=== PATIENT | male | born 1950 | race Caucasian/White ===

== ENCOUNTER 2018-10-05 09:42 | Inpatient (IN) | payer MEDICARE, OTHER | END 2018-10-08 13:11 | disposition short-term general hospital (02) | LOC: ER FS 09:42 → 4TH 14:02 → ICU 10-07 19:10 | DX: I50.31 Acute diastolic (congestive) heart failure (principal); J44.1 Chronic obstructive pulmonary disease with (acute) exacerbation; Z87.891 Personal history of nicotine dependence; E87.2 Acidosis; Z85.820 Personal history of malignant melanoma of skin ==

== ENCOUNTER → 2018-10-21 | Outpatient (CLI) | payer MEDICARE ==
[~2018-10-21] MED LIST: ALBU2.5V4 NEB; C,E,1CAP2 PO; CHOL10007 PO; FLUT1BLS3 IH; MULT-1029 PO; RT-ALBUINH INH
[2018-10-21 12:54] LABS: CREATININE SERUM 1.42 MG/DL (0.60-1.30); POTASSIUM 4.7 MMOL/L (3.6-5.0)
[2018-10-21 12:55] LABS: CALCIUM 8.7 MG/DL (8.5-10.1)
[2018-10-22 11:23] LABS: HEMATOCRIT 38 % (40-54); HEMOGLOBIN 12.1 G/DL (13.3-17.7); MEAN CORPUSCULAR HEMOGLOBIN 31 PG (25-34); MEAN CORPUSCULAR HGB CONC 32 G/DL (32-36); MEAN CORPUSCULAR VOLUME 97 FL (80-99); PLATELET COUNT 308 10^3/uL (130-400); RED CELL DISTRIBUTION WIDTH 14.6 % (10.0-14.5); WHITE BLOOD COUNT 7.8 10^3/uL (4.3-11.0)
[2018-10-22 11:24] LABS: BASOPHILS % (AUTO) 1 % (0-10); EOSINOPHILS # (AUTO) 0.1 10^3/uL (0.0-0.3); EOSINOPHILS % (AUTO) 2 % (0-10); LYMPHOCYTES # (AUTO) 0.8 X 10^3 (1.0-4.0); LYMPHOCYTES % (AUTO) 11 % (12-44); MEAN PLATELET VOLUME 10.7 FL (7.4-10.4); MONOCYTES # (AUTO) 0.9 X 10^3 (0.0-1.0); MONOCYTES % (AUTO) 12 % (0-12); NEUTROPHILS # (AUTO) 5.9 X 10^3 (1.8-7.8); NEUTROPHILS % (AUTO) 75 % (42-75)
== END ==
LOC: LAB FS 11:54
PROVIDERS: ATTEND Family Medicine
DX: I48.91 Unspecified atrial fibrillation (principal); I50.23 Acute on chronic systolic (congestive) heart failure
CPT/HCPCS: 36415; 80048

== ENCOUNTER → 2018-10-22 | Outpatient (CLI) | payer MEDICARE ==
--- NOTE | 2018-10-26 17:40 | Physician Query-Final Dx ---
Clinic Account Progress/Dx Physician Query: Please give diagnosis Date of Service Oct 22, 2018 at 11:06 KRIS HAWK Oct 26, 2018 17:40
== END ==
LOC: IHC 11:06
PROVIDERS: ATTEND Family Medicine
DX: I50.42 Chronic combined systolic (congestive) and diastolic (congestive) heart failure (principal); I25.10 Atherosclerotic heart disease of native coronary artery without angina pectoris

== ENCOUNTER → 2019-05-12 | Outpatient (CLI) | payer MEDICARE | LOC: CARD 09:19 | PROVIDERS: ATTEND Internal Medicine Interventional Cardiology | DX: I48.0 Paroxysmal atrial fibrillation (principal); I35.1 Nonrheumatic aortic (valve) insufficiency; J44.9 Chronic obstructive pulmonary disease, unspecified; I50.42 Chronic combined systolic (congestive) and diastolic (congestive) heart failure; I25.10 Atherosclerotic heart disease of native coronary artery without angina pectoris | CPT/HCPCS: 93306 ==

== ENCOUNTER 2019-11-07 08:44 | Emergency (ER) | payer MEDICARE ==
[~2019-11-07] VITALS: Ht 183 cm; Wt 79.4 kg
--- NOTE | 2019-11-07 08:47 | ED General ---
General Stated Complaint: CANT URINATE; THINKS HE HAS A KIDNEY STONE Source of Information: Patient History of Present Illness Date Seen by Provider: November 07, 2019 Time Seen by Provider: 08:47 Initial Comments Patient is a 69-year-old male with past medical history significant for kidney stones who comes to the ER today complaining that he had some pain earlier in the week that he thought was typical for kidney stone pain. It was over the left flank area and it did resolve. Although he has been pain-free for several days, he states he has been unable to urinate over the last 24 hours. He has had scant amounts of urine but has the persistent urge to void with inability to do so. No severe pain. No fever. Patient states he has had this problem previously sec ondary to large kidney stones. His review of systems is otherwise negative. No recent illness or viral symptoms. Denies hematuria. Allergies and Home Medications Allergies Coded Allergies: No Known Drug Allergies (Unverified , 10/05/18) Home Medications Albuterol Sulfate 2.5 Mg/3 Ml Vial.neb, 2.5 MG NEB Q4H PRN for SHORTNESS OF BREATH, (Reported) Albuterol Sulfate 1 Puff Puff, 2 PUFF INH Q4H PRN for SHORTNESS OF BREATH, (Reported) C,E,Zinc,Copper 24/Om3/Lut/Mustapha 1 Each Capsule, 1 CAP PO 1800, (Reported) Cholecalciferol (Vitamin D3) 1,000 Unit Capsule, 1,000 UNIT PO 1800, (Reported) Fluticasone/Umeclidin/Vilanter 1 Each Blst.w.dev, 1 PUFF IH HS, (Reported) Multivit-Min/FA/Lycopene/Lut 1 Each Tablet, 1 TAB PO 1800, (Reported) Patient Home Medication List Home Medication List Reviewed: Yes Review of Systems Review of Systems Constitutional: no symptoms reported EENTM: no symptoms reported Respiratory: no symptoms reported Cardiovascular: no symptoms reported Gastrointestinal: no symptoms reported, see HPI Genitourinary: no symptoms reported, see HPI Musculoskeletal: no symptoms reported Skin: no symptoms reported All Other Systems Reviewed Negative Unless Noted: Yes Past Kmneuxr-Czmjdn-Mnpzmc Hx Patient Social History Alcohol Beverage of Choice: Beer Type Used: Cigarettes Former Smoker, Quit: Oct 04, 2016 2nd Hand Smoke Exposure: No Recent Hopitalizations: No Seasonal Allergies Seasonal Allergies: No Past Medical History 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, Ear Surgery, Orthopedic Respiratory: Yes Pneumonia, COPD Currently Using CPAP: No Currently Using BIPAP: No Cardiac: No Neurological: No Genitourinary: No Kidney Stones Gastrointestinal: No Musculoskeletal: No Endocrine: No HEENT: No Cancer: Yes Skin Did You Recieve Any Treatments: Yes What Type of Treatment Did You: Surgical Intervention Psychosocial: No Integumentary: Yes (BASAL CELL SKIN CANCER) Blood Disorders: No Physical Exam Vital Signs Vital Signs - First Documented 11/07/19 08:50 Temp 36.5 Pulse 134 Resp 18 B/P (MAP) 123/97 (106) Pulse Ox 97 Capillary Refill : Height, Weight, BMI Height: 6'0.00" Weight: 171lbs. 5.0oz. [id number]; 23.7 BMI Method:Stated General Appearance: No Apparent Distress, WD/WN HEENT: PERRL/EOMI Neck: Full Range of Motion Respiratory: Lungs Clear, Normal Breath Sounds Cardiovascular: Tachycardia Gastrointestinal: Normal Bowel Sounds, Non Tender, Soft Neurologic/Psychiatric: Alert, Oriented x3 Skin: Normal Color, Warm/Dry Progress/Results/Core Measures Suspected Sepsis SIRS Temperature: Pulse: Respiratory Rate: Laboratory Tests 11/07/19 09:15: White Blood Count 3.0L Blood Pressure / Mean: Laboratory Tests 11/07/19 09:15: Creatinine 1.12, Platelet Count 286 Results/Orders Lab Results Laboratory Tests Test 11/07/19 09:15 Range/Units White Blood Count 3.0 L 4.3-11.0 10^3/uL Red Blood Count 4.49 4.35-5.85 10^6/uL Hemoglobin 13.9 13.3-17.7 G/DL Hematocrit 42 40-54 % Mean Corpuscular Volume 93 80-99 FL Mean Corpuscular Hemoglobin 31 25-34 PG Mean Corpuscular Hemoglobin Concent 33 32-36 G/DL Red Cell Distribution Width 12.9 10.0-14.5 % Platelet Count 286 130-400 10^3/uL Mean Platelet Volume 10.1 7.4-10.4 FL Neutrophils (%) (Auto) 51 42-75 % Lymphocytes (%) (Auto) 31 12-44 % Monocytes (%) (Auto) 13 H 0-12 % Eosinophils (%) (Auto) 4 0-10 % Basophils (%) (Auto) 1 0-10 % Neutrophils # (Auto) 1.6 L 1.8-7.8 X 10^3 Lymphocytes # (Auto) 0.9 L 1.0-4.0 X 10^3 Monocytes # (Auto) 0.4 0.0-1.0 X 10^3 Eosinophils # (Auto) 0.1 0.0-0.3 10^3/uL Basophils # (Auto) 0.0 0.0-0.1 10^3/uL Neutrophils % (Manual) 51 % Lymphocytes % (Manual) 20 % Monocytes % (Manual) 8 % Eosinophils % (Manual) 4 % Basophils % (Manual) 0 % Band Neutrophils 2 % Atypical Lymphocytes 15 % Blood Morphology Comment NORMAL Sodium Level 138 135-145 MMOL/L Potassium Level 4.7 3.6-5.0 MMOL/L Chloride Level 101 98-107 MMOL/L Carbon Dioxide Level 24 21-32 MMOL/L Anion Gap 13 5-14 MMOL/L Blood Urea Nitrogen 21 H 7-18 MG/DL Creatinine 1.12 0.60-1.30 MG/DL Estimat Glomerular Filtration Rate > 60 BUN/Creatinine Ratio 19 Glucose Level 109 H 70-105 MG/DL Calcium Level 9.0 8.5-10.1 MG/DL Troponin I < 0.30 <0.30 NG/ML My Orders Orders - JACINTO ROBERTS DO Ct Abdomen/Pelvis Wo (11/07/19 08:50) Urinalysis (11/07/19 08:51) Basic Metabolic Panel (11/07/19 08:51) Ed Iv/Invasive Line Start (11/07/19 09:03) Cbc With Automated Diff (11/07/19 09:04) Troponin I Fs (11/07/19 09:04) Ekg Tracing (11/07/19 09:04) Ns Iv 1000 Ml (Sodium Chloride 0.9%) (11/07/19 09:15) Manual Differential (11/07/19 09:15) Coronavirus Sars-Cov-2 So 2019 (11/07/19 10:14) Vital Signs/I&O 11/07/19 08:50 Temp 36.5 Pulse 134 Resp 18 B/P (MAP) 123/97 (106) Pulse Ox 97 Capillary Refill : Progress Note : Time: 09:20 Progress Note Patient is seen and examined. Overall, his examination is unremarkable but he is noted to have significant tachycardia. Patient states he does have history of atrial fibrillation. He denies chest pain or shortness of breath. Will do urinalysis and CT scan and check basic labs. Currently in no distress. 10:20: All results are reviewed and discussed with the patient and all questions are answered. He has received Paul catheter now with 500 mL of clear urine initially out and continues to drain without difficulty. Heart rate is down to 88 and normal sinus rhythm. Labs are reviewed and they're is normal white blood cell count and kidney function. I spoke to the urologist, Dr. Hough, about this patient. Patient will follow up with urology tomorrow at 1:00 in preparation for cystoscopy and stone removal. Given upcoming procedure, it was requested that patient received testing for COVID which is ordered prior to discharge from the ER. He is discharged home with a leg bag. He is agreeable to this plan of care. ECG Initial ECG Impression Date: November 07, 2019 Initial ECG Impression Time: 09:00 Initial ECG Rate: 147 Departure Impression Primary Impression: Urinary obstruction Disposition: 01 HOME, SELF-CARE Condition: Improved Departure-Patient Inst. Referrals: PADMA IBANEZ MD (PCP/Family) Primary Care Physician JACINTO ROBERTS DO November 07, 2019 08:47
--- OUTSIDE RECORDS SUMMARY | 2019-11-07 08:50 | XMS REPORT | Continuity of Care Document ---
Author Organization Unknown Address Unknown Phone Unavailable Allergies Active Description Code Type Severity Reaction Onset Reported/Identified Relationship to Patient Clinical Status Yes No Known Drug Allergies [id number] Drug Allergy Unknown N/A 10/05/2018 Medications There is no data. Problems Date Dx Coded Attending Type Code Diagnosis Diagnosed By 10/07/2018 KEON ROBLEDO MD Ot E87 .2 ACIDOSIS 10/07/2018 KEON ROBLEDO MD Ot I50.31 ACUTE DIASTOLIC (CONGESTIVE) HEART FAILU 10/07/2018 KEON ROBLEDO MD, Ot J44 .1 CHRONIC OBSTRUCTIVE PULMONARY DISEASE W 10/07/2018 KEON ROBLEDO MD Ot Z85.820 PERSONAL HISTORY OF MALIGNANT MELANOMA O 10/07/2018 KEON ROBLEDO MD Ot Z87.891 PERSONAL HISTORY OF NICOTINE DEPENDENCE 10/07/2018 KEON ROBLEDO MD Ot E87 .2 ACIDOSIS 10/07/2018 KEON ROBLEDO MD Ot I50.31 ACUTE DIASTOLIC (CONGESTIVE) HEART FAILU 10/07/2018 KEON ROBLEDO MD Ot J44 .1 CHRONIC OBSTRUCTIVE PULMONARY DISEASE W 10/07/2018 KEON ROBLEDO MD Ot Z85.820 PERSONAL HISTORY OF MALIGNANT MELANOMA O 10/07/2018 KEON ROBLEDO MD Ot Z87.891 PERSONAL HISTORY OF NICOTINE DEPENDENCE 10/07/2018 KEON ROBLEDO MD Ot E87 .2 ACIDOSIS 10/07/2018 KEON ROBLEDO MD Ot I50.31 ACUTE DIASTOLIC (CONGESTIVE) HEART FAILU 10/07/2018 KEON ROBLEDO MD Ot J44 .1 CHRONIC OBSTRUCTIVE PULMONARY DISEASE W 10/07/2018 KEON ROBLDEO MD Ot Z85.820 PERSONAL HISTORY OF MALIGNANT MELANOMA O 10/07/2018 KEON ROBLEDO MD Ot Z87.891 PERSONAL HISTORY OF NICOTINE DEPENDENCE 10/07/2018 KEON ROBLEDO MD Ot E87 .2 ACIDOSIS 10/07/2018 KEON ROBLEDO MD Ot I50.31 ACUTE DIASTOLIC (CONGESTIVE) HEART FAILU 10/07/2018 KEON ROBLEDO MD, Ot J44 .1 CHRONIC OBSTRUCTIVE PULMONARY DISEASE W 10/07/2018 KEON ROBLEDO MD Ot Z85.820 PERSONAL HISTORY OF MALIGNANT MELANOMA O 10/07/2018 KEON ROBLEDO MD Ot Z87.891 PERSONAL HISTORY OF NICOTINE DEPENDENCE 10/07/2018 KEON ROBLEDO MD Ot E87 .2 ACIDOSIS 10/07/2018 KEON ROBLEDO MD Ot I50.31 ACUTE DIASTOLIC (CONGESTIVE) HEART FAILU 10/07/2018 KEON ROBLEDO MD, Ot J44 .1 CHRONIC OBSTRUCTIVE PULMONARY DISEASE W 10/07/2018 KEON ROBLEDO MD Ot Z85.820 PERSONAL HISTORY OF MALIGNANT MELANOMA O 10/07/2018 KEON ROBLEDO MD Ot Z87.891 PERSONAL HISTORY OF NICOTINE DEPENDENCE 10/08/2018 KEON RBOLEDO MD Ot E87 .2 ACIDOSIS 10/08/2018 KEON ROBLEDO MD Ot I50.31 ACUTE DIASTOLIC (CONGESTIVE) HEART FAILU 10/08/2018 KEON ROBLEDO MD, Ot J44 .1 CHRONIC OBSTRUCTIVE PULMONARY DISEASE W 10/08/2018 KEON ROBLEDO MD Ot Z85.820 PERSONAL HISTORY OF MALIGNANT MELANOMA O 10/08/2018 KEON ROBLEDO MD Ot Z87.891 PERSONAL HISTORY OF NICOTINE DEPENDENCE 10/08/2018 KEON ROBLEDO MD Ot E87 .2 ACIDOSIS 10/08/2018 KEON ROBLEDO MD Ot I21 .4 NON-ST ELEVATION (NSTEMI) MYOCARDIAL INF 10/08/2018 KEON ROBLEDO MD Ot I25.10 ATHSCL HEART DISEASE OF [place] CORONARY 10/08/2018 KEON ROBLEDO MD Ot I35 .0 NONRHEUMATIC AORTIC (VALVE) STENOSIS 10/08/2018 KEON ROBLEDO MD Ot I42 .9 CARDIOMYOPATHY, UNSPECIFIED 10/08/2018 KEON ROBLEDO MD Ot I48.91 UNSPECIFIED ATRIAL FIBRILLATION 10/08/2018 KEON ROBLEDO MD Ot I50.21 ACUTE SYSTOLIC (CONGESTIVE) HEART FAILUR 10/08/2018 KEON ROBLEDO MD Ot I50.31 ACUTE DIASTOLIC (CONGESTIVE) HEART FAILU 10/08/2018 KEON ROBLEDO MD Ot I95 .9 HYPOTENSION, UNSPECIFIED 10/08/2018 KEON ROBLEDO MD Ot J44 .1 CHRONIC OBSTRUCTIVE PULMONARY DISEASE W 10/08/2018 KEON ROBLEDO MD Ot J96.00 ACUTE RESPIRATORY FAILURE, UNSP W HYPOXI 10/08/2018 KEON ROBLEDO MD Ot Z85.820 PERSONAL HISTORY OF MALIGNANT MELANOMA O 10/08/2018 KEON ROBLEDO MD Ot Z87.891 PERSONAL HISTORY OF NICOTINE DEPENDENCE 10/22/2018 PADMA IBANEZ MD Ot I48.91 UNSPECIFIED ATRIAL FIBRILLATION 10/22/2018 PADMA IBANEZ MD Ot I50.23 ACUTE ON CHRONIC SYSTOLIC (CONGESTIVE) H 11/06/2018 PADMA IBANEZ MD Ot I25.10 ATHSCL HEART DISEASE OF [place] CORONARY 11/06/2018 PADMA IBANEZ MD Ot 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 11/10/2018 PADMA IBANEZ MD Ot I48.91 UNSPECIFIED ATRIAL FIBRILLATION 11/10/2018 PADMA IBANEZ MD Ot I50.23 ACUTE ON CHRONIC SYSTOLIC (CONGESTIVE) H 03/15/2019 PADMA IBANEZ MD Ot I25.10 ATHSCL HEART DISEASE OF [place] CORONARY 03/15/2019 PADMA IBANEZ MD Ot 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 05/11/2019 PADMA IBANEZ MD Ot I48.91 UNSPECIFIED ATRIAL FIBRILLATION 05/11/2019 PADMA IBANEZ MD Ot I50.23 ACUTE ON CHRONIC SYSTOLIC (CONGESTIVE) H 05/11/2019 PADMA IBANEZ MD Ot I25.10 ATHSCL HEART DISEASE OF [place] CORONARY 05/11/2019 PADMA IBANEZ MD Ot 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 06/01/2019 Charlie FRANCO MD Ot I25.10 ATHSCL HEART DISEASE OF [place] CORONARY 06/01/2019 Charlie FRANCO MD Ot I35 .1 NONRHEUMATIC AORTIC (VALVE) INSUFFICIENC 06/01/2019 Charlie FRANCO MD, Ot I48 .0 PAROXYSMAL ATRIAL FIBRILLATION 06/01/2019 Charlie FRANCO MD, Ot 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 06/01/2019 Charlie FRANCO MD, Ot J44 .9 CHRONIC OBSTRUCTIVE PULMONARY DISEASE, U 07/02/2019 Charlie FRANCO MD Ot I25.10 ATHSCL HEART DISEASE OF [place] CORONARY 07/02/2019 Charlie FRANCO MD, Ot I35 .1 NONRHEUMATIC AORTIC (VALVE) INSUFFICIENC 07/02/2019 Charlie FRANCO MD, Ot I48 .0 PAROXYSMAL ATRIAL FIBRILLATION 07/02/2019 Charlie FRANCO MD, Ot 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 07/02/2019 Charlie FRANCO MD, Ot J44 .9 CHRONIC OBSTRUCTIVE PULMONARY DISEASE, U 07/08/2019 Charlie FRANCO MD, Ot I25.10 ATHSCL HEART DISEASE OF [place] CORONARY 07/08/2019 Charlie FRANCO MD, Ot I35 .1 NONRHEUMATIC AORTIC (VALVE) INSUFFICIENC 07/08/2019 Cahrlie FRANCO MD, Ot I48 .0 PAROXYSMAL ATRIAL FIBRILLATION 07/08/2019 Charlie FRANCO MD Ot 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 07/08/2019 Charlie FRANCO MD, Ot J44 .9 CHRONIC OBSTRUCTIVE PULMONARY DISEASE, U Procedures Code Description Performed By Per formed On [id number] FL UOROSCOPY OF MULT COR ART USING L OSM 10/07/2018 Results Test Result Range Complete blood count (CBC) with automate d white blood cell (WBC) differential - 10/05/18 10:05 Blood leukocytes automated count (number/volume) 5.7 10*3/uL 4.3-11.0 Blood erythrocytes automated count (number/volume) 4.53 10*6/uL 4.35-5.85 Venous blood hemoglobin measurement (mass/volume) 13.8 g/dL 13.3-17.7 Blood hematocrit (volume fraction) 43 % 40-54 Automated erythrocyte mean corpuscular volume 95 [ foz_us] 80-99 Automated erythrocyte mean corpuscular h emoglobin (mass per erythrocyte) 30 pg 25-34 Automated erythrocyte mean corpuscular h emoglobin concentration measurement (mass/volume) 32 g/dL 32-36 Automated erythrocyte distribution width ratio 13. 8 % 10.0- 14.5 Automated blood platelet count (count/volume) 211 10*3/uL 130-400 Automated blood platelet mean volume measurement 11.3 [foz_us] 7.4-10.4 Automated blood neutrophils/100 leukocytes 70 % 42-75 Automated blood lymphocytes/100 leukocytes 18 % 12-44 Blood monocytes/100 leukocytes 9 % 0-12 Automated blood eosinophils/100 leukocytes 2 % 0-10 Automated blood basophils/100 leukocytes 1 % 0-10 Blood neutrophils automated count (number/volume) 4.0 10*3 1.8-7.8 Blood lymphocytes automated count (number/volume) 1.0 10*3 1.0-4.0 Blood monocytes automated count (number/volume) 0. 5 10*3 0.0-1.0 Automated eosinophil count 0.1 10*3/uL 0 .0-0.3 Automated blood basophil count (count/volume) 0.1 10*3/uL 0.0-0.1 Blood lactic acid measurement (moles/vol ume) - 10/05/18 10:05 Blood lactic acid measurement (moles/volume) 2.25 mmol/L 0.50-2.00 Comprehensive metabolic panel - 10/05/18 10:05 Serum or plasma sodium measurement (moles/volume) 142 mmol/L 135-145 Serum or plasma potassium measurement (moles/volume) 3.8 mmol/L 3.6-5.0 Serum or plasma chloride measurement (moles/volume) 104 mmol/L 98-107 Carbon dioxide 23 mmol/L 21-32 Serum or plasma anion gap determination (moles/volume) 15 mmol/L 5-14 Serum or plasma urea nitrogen measurement (mass/volume ) 20 mg/dL 7-18 Serum or plasma creatinine measurement (mass/volume) 1.13 mg/dL 0.60-1.30 Serum or plasma urea nitrogen/creatinine mass ratio 18 NRG Serum or plasma creatinine measurement w ith calculation of estimated glomerular filtration rate > NRG Serum or plasma glucose measurement (mass/volume) 101 mg/dL 70-105 Serum or plasma calcium measurement (mass/volume) 9.1 mg/dL 8.5-10.1 Serum or plasma total bilirubin measurement (mass/volu me) 0.8 mg/dL 0.1-1.0 Serum or plasma alkaline phosphatase kary surement (enzymatic activity/volume) 92 U/L 40-136 Serum or plasma aspartate aminotransfera se measurement (enzymatic activity/volume) 28 U/L 5-34 Serum or plasma alanine aminotransferase measurement (enzymatic activity/volume) 22 U/L 0-55 Serum or plasma protein measurement (mass/volume) 7.3 g/dL 6.4-8.2 Serum or plasma albumin measurement (mass/volume) 4.2 g/dL 3.2-4.5 CALCIUM CORRECTED 8.9 mg/dL 8.5-10.1 TROPONIN T - 10/05/18 10:05 TROPONIN T 25 % <=15 PROBNP FS - 10/05/18 10:05 PROBNP FS 9457.0 pg/mL <75.0 PT panel in platelet poor plasma by coag ulation assay - 10/05/18 10:05 Prothrombin time (PT) in platelet poor plasma by coagu lation assay 13.8 s 12.2-14.7 INR in platelet poor plasma or blood by coagulation as say 1.1 0.8-1.4 Activated partial thromboplastin time (a PTT) in platelet poor plasma bycoagulation assay - 10/05/18 10:05 Activated partial thromboplastin time (a PTT) in platelet poor plasma bycoagulation assay 30 s 24-35 Bacterial blood culture - 10/05/18 10:05 Bacterial blood culture NG NRG Bacterial blood culture - 10/05/18 11:03 Bacterial blood culture NG NRG Serum or plasma lactate measurement (mol es/volume) - 10/05/18 12:10 Serum or plasma lactate measurement (moles/volume) 1.40 mmol/L 0.50-2.00 Complete urinalysis with reflex to cultu re - 10/05/18 12:45 Urine color determination YELLOW NRG Urine clarity determination CLEAR NR G Urine pH measurement by test strip 6.0 5-9 Specific gravity of urine by test strip 1.010 1.016-1.022 Urine protein assay by test strip, semi-quantitative NEGATIVE NEGATIVE Urine glucose detection by automated test strip NE GATIVE NEGATIVE Erythrocytes detection in urine sediment by light micr oscopy NEGATIVE NEGATIVE Urine ketones detection by automated test strip NE GATIVE NEGATIVE Urine nitrite detection by test strip NEGATIVE NEGATIVE Urine total bilirubin detection by test strip NEGA TIVE NEGATIVE Urine urobilinogen measurement by automated test strip (mass/volume) 0.2 mg/dL NORMAL Urine leukocyte esterase detection by dipstick NEG ATIVE NEGATIVE Automated urine sediment erythrocyte cou nt by microscopy (number/high power field) [HPF] NRG Automated urine sediment leukocyte count by microscopy (number/high power field) NONE NRG Bacteria detection in urine sediment by light microsco py NONE NRG Crystals detection in urine sediment by light microsco py NONE NRG Casts detection in urine sediment by light microscopy NONE NRG Mucus detection in urine sediment by light microscopy NEGATIVE NRG Complete urinalysis with reflex to culture NO NRG Bacterial urine culture - 10/05/18 12:45 Bacterial urine culture NG NRG Complete blood count (CBC) with automate d white blood cell (WBC) differential - 10/06/18 05:52 Blood leukocytes automated count (number/volume) 5.4 10*3/uL 4.3-11.0 Blood erythrocytes automated count (number/volume) 4.34 10*6/uL 4.35-5.85 Venous blood hemoglobin measurement (mass/volume) 13.2 g/dL 13.3-17.7 Blood hematocrit (volume fraction) 40 % 40-54 Automated erythrocyte mean corpuscular volume 93 [ foz_us] 80-99 Automated erythrocyte mean corpuscular h emoglobin (mass per erythrocyte) 30 pg 25-34 Automated erythrocyte mean corpuscular h emoglobin concentration measurement (mass/volume) 33 g/dL 32-36 Automated erythrocyte distribution width ratio 14. 0 % 10.0- 14.5 Automated blood platelet count (count/volume) 208 10*3/uL 130-400 Automated blood platelet mean volume measurement 11.5 [foz_us] 7.4-10.4 Automated blood neutrophils/100 leukocytes 88 % 42-75 Automated blood lymphocytes/100 leukocytes 9 % 12-44 Blood monocytes/100 leukocytes 3 % 0-12 Automated blood eosinophils/100 leukocytes 0 % 0-10 Automated blood basophils/100 leukocytes 0 % 0-10 Blood neutrophils automated count (number/volume) 4.8 10*3 1.8-7.8 Blood lymphocytes automated count (number/volume) 0.5 10*3 1.0-4.0 Blood monocytes automated count (number/volume) 0. 2 10*3 0.0-1.0 Automated eosinophil count 0.0 10*3/uL 0 .0-0.3 Automated blood basophil count (count/volume) 0.0 10*3/uL 0.0-0.1 Comprehensive metabolic panel - 10/06/18 05:52 Serum or plasma sodium measurement (moles/volume) 141 mmol/L 135-145 Serum or plasma potassium measurement (moles/volume) 3.8 mmol/L 3.6-5.0 Serum or plasma chloride measurement (moles/volume) 104 mmol/L 98-107 Carbon dioxide 23 mmol/L 21-32 Serum or plasma anion gap determination (moles/volume) 14 mmol/L 5-14 Serum or plasma urea nitrogen measurement (mass/volume ) 23 mg/dL 7-18 Serum or plasma creatinine measurement (mass/volume) 1.18 mg/dL 0.60-1.30 Serum or plasma urea nitrogen/creatinine mass ratio 19 NRG Serum or plasma creatinine measurement w ith calculation of estimated glomerular filtration rate > NRG Serum or plasma glucose measurement (mass/volume) 130 mg/dL 70-105 Serum or plasma calcium measurement (mass/volume) 8.8 mg/dL 8.5-10.1 Serum or plasma total bilirubin measurement (mass/volu me) 1.0 mg/dL 0.1-1.0 Serum or plasma alkaline phosphatase kary surement (enzymatic activity/volume) 78 U/L 40-136 Serum or plasma aspartate aminotransfera se measurement (enzymatic activity/volume) 23 U/L 5-34 Serum or plasma alanine aminotransferase measurement (enzymatic activity/volume) 21 U/L 0-55 Serum or plasma protein measurement (mass/volume) 6.5 g/dL 6.4-8.2 Serum or plasma albumin measurement (mass/volume) 3.8 g/dL 3.2-4.5 CALCIUM CORRECTED 9.0 mg/dL 8.5-10.1 Serum or plasma troponin i.cardiac measu rement (mass/volume) - 10/06/18 05:52 Serum or plasma troponin i.cardiac measurement (mass/v olume) 0.060 ng/mL <0.028 Serum or plasma lithium measurement (mol es/volume) - 10/06/18 05:52 BNP level 3656.2 pg/mL <100.0 Blood manual differential performed dete ction - 10/06/18 05:52 Blood monocytes/100 leukocytes 2 % NRG Manual blood segmented neutrophils/100 leukocytes 88 % NRG Manual blood lymphocytes/100 leukocytes 10 % NRG Serum or plasma troponin i.cardiac measu rement (mass/volume) - 10/06/18 14:32 Serum or plasma troponin i.cardiac measurement (mass/v olume) 0.070 ng/mL <0.028 Complete blood count (CBC) with automate d white blood cell (WBC) differential - 10/07/18 06:25 Blood leukocytes automated count (number/volume) 12.4 10*3/uL 4.3-11.0 Blood erythrocytes automated count (number/volume) 4.25 10*6/uL 4.35-5.85 Venous blood hemoglobin measurement (mass/volume) 13.0 g/dL 13.3-17.7 Blood hematocrit (volume fraction) 39 % 40-54 Automated erythrocyte mean corpuscular volume 92 [ foz_us] 80-99 Automated erythrocyte mean corpuscular h emoglobin (mass per erythrocyte) 31 pg 25-34 Automated erythrocyte mean corpuscular h emoglobin concentration measurement (mass/volume) 33 g/dL 32-36 Automated erythrocyte distribution width ratio 14. 3 % 10.0- 14.5 Automated blood platelet count (count/volume) 221 10*3/uL 130-400 Automated blood platelet mean volume measurement 11.5 [foz_us] 7.4-10.4 Automated blood neutrophils/100 leukocytes 93 % 42-75 Automated blood lymphocytes/100 leukocytes 3 % 12-44 Blood monocytes/100 leukocytes 4 % 0-12 Automated blood eosinophils/100 leukocytes 0 % 0-10 Automated blood basophils/100 leukocytes 0 % 0-10 Blood neutrophils automated count (number/volume) 11.5 10*3 1.8-7.8 Blood lymphocytes automated count (number/volume) 0.4 10*3 1.0-4.0 Blood monocytes automated count (number/volume) 0. 5 10*3 0.0-1.0 Automated eosinophil count 0.0 10*3/uL 0 .0-0.3 Automated blood basophil count (count/volume) 0.0 10*3/uL 0.0-0.1 Whole blood basic metabolic panel - 09/22 06:25 Serum or plasma sodium measurement (moles/volume) 139 mmol/L 135-145 Serum or plasma potassium measurement (moles/volume) 3.7 mmol/L 3.6-5.0 Serum or plasma chloride measurement (moles/volume) 103 mmol/L 98-107 Carbon dioxide 23 mmol/L 21-32 Serum or plasma anion gap determination (moles/volume) 13 mmol/L 5-14 Serum or plasma urea nitrogen measurement (mass/volume ) 37 mg/dL 7-18 Serum or plasma creatinine measurement (mass/volume) 1.32 mg/dL 0.60-1.30 Serum or plasma urea nitrogen/creatinine mass ratio 28 NRG Serum or plasma creatinine measurement w ith calculation of estimated glomerular filtration rate 54 NRG Serum or plasma glucose measurement (mass/volume) 119 mg/dL 70-105 Serum or plasma calcium measurement (mass/volume) 8.8 mg/dL 8.5-10.1 Methicillin resistant Staphylococcus aur eus (MRSA) screening culture - 10/07/18 10:05 Methicillin resistant Staphylococcus aureus (MRSA) scr eening culture NEG NRG Automated blood complete blood count (he mogram) panel - 10/08/18 03:30 Blood leukocytes automated count (number/volume) 11.3 10*3/uL 4.3-11.0 Blood erythrocytes automated count (number/volume) 4.22 10*6/uL 4.35-5.85 Venous blood hemoglobin measurement (mass/volume) 12.9 g/dL 13.3-17.7 Blood hematocrit (volume fraction) 39 % 40-54 Automated erythrocyte mean corpuscular volume 93 [ foz_us] 80-99 Automated erythrocyte mean corpuscular h emoglobin (mass per erythrocyte) 31 pg 25-34 Automated erythrocyte mean corpuscular h emoglobin concentration measurement (mass/volume) 33 g/dL 32-36 Automated erythrocyte distribution width ratio 14. 3 % 10.0- 14.5 Automated blood platelet count (count/volume) 205 10*3/uL 130-400 Automated blood platelet mean volume measurement 11.6 [foz_us] 7.4-10.4 Whole blood basic metabolic panel - 10/23 03:30 Serum or plasma sodium measurement (moles/volume) 139 mmol/L 135-145 Serum or plasma potassium measurement (moles/volume) 3.9 mmol/L 3.6-5.0 Serum or plasma chloride measurement (moles/volume) 103 mmol/L 98-107 Carbon dioxide 23 mmol/L 21-32 Serum or plasma anion gap determination (moles/volume) 13 mmol/L 5-14 Serum or plasma urea nitrogen measurement (mass/volume ) 36 mg/dL 7-18 Serum or plasma creatinine measurement (mass/volume) 1.23 mg/dL 0.60-1.30 Serum or plasma urea nitrogen/creatinine mass ratio 29 NRG Serum or plasma creatinine measurement w ith calculation of estimated glomerular filtration rate 58 NRG Serum or plasma glucose measurement (mass/volume) 112 mg/dL 70-105 Serum or plasma calcium measurement (mass/volume) 8.7 mg/dL 8.5-10.1 Whole blood basic metabolic panel - 10/05 01/22 12:20 Serum or plasma sodium measurement (moles/volume) 137 mmol/L 135-145 Serum or plasma potassium measurement (moles/volume) 4.7 mmol/L 3.6-5.0 Serum or plasma chloride measurement (moles/volume) 100 mmol/L 98-107 Carbon dioxide 27 mmol/L 21-32 Serum or plasma anion gap determination (moles/volume) 10 mmol/L 5-14 Serum or plasma urea nitrogen measurement (mass/volume ) 24 mg/dL 7-18 Serum or plasma creatinine measurement (mass/volume) 1.42 mg/dL 0.60-1.30 Serum or plasma urea nitrogen/creatinine mass ratio 17 NRG Serum or plasma creatinine measurement w ith calculation of estimated glomerular filtration rate 49 NRG Serum or plasma glucose measurement (mass/volume) 85 mg/dL 70-105 Serum or plasma calcium measurement (mass/volume) 8.7 mg/dL 8.5-10.1 Complete blood count (CBC) with automate d white blood cell (WBC) differential - 10/22/18 11:18 Blood leukocytes automated count (number/volume) 7.8 10*3/uL 4.3-11.0 Blood erythrocytes automated count (number/volume) 3.90 10*6/uL 4.35-5.85 Venous blood hemoglobin measurement (mass/volume) 12.1 g/dL 13.3-17.7 Blood hematocrit (volume fraction) 38 % 40-54 Automated erythrocyte mean corpuscular volume 97 [ foz_us] 80-99 Automated erythrocyte mean corpuscular h emoglobin (mass per erythrocyte) 31 pg 25-34 Automated erythrocyte mean corpuscular h emoglobin concentration measurement (mass/volume) 32 g/dL 32-36 Automated erythrocyte distribution width ratio 14. 6 % 10.0- 14.5 Automated blood platelet count (count/volume) 308 10*3/uL 130-400 Automated blood platelet mean volume measurement 10.7 [foz_us] 7.4-10.4 Automated blood neutrophils/100 leukocytes 75 % 42-75 Automated blood lymphocytes/100 leukocytes 11 % 12-44 Blood monocytes/100 leukocytes 12 % 0-12 Automated blood eosinophils/100 leukocytes 2 % 0-10 Automated blood basophils/100 leukocytes 1 % 0-10 Blood neutrophils automated count (number/volume) 5.9 10*3 1.8-7.8 Blood lymphocytes automated count (number/volume) 0.8 10*3 1.0-4.0 Blood monocytes automated count (number/volume) 0. 9 10*3 0.0-1.0 Automated eosinophil count 0.1 10*3/uL 0 .0-0.3 Automated blood basophil count (count/volume) 0.0 10*3/uL 0.0-0.1 Encounters ACCT No. Visit Date/Time Discharge Status Pt. Type Provider Facility Loc./Unit Complaint [id number] 11/04/2018 12:08:57 23:59:59 CLS Preadmit BRIDGETT III, [facility] ANNETTE CR TAVR [id number] 05/12/2019 09:19:00 23:59:59 CLS Outpatient Charlie FRANCO MD [facility] CARD PARTOXYSMAL AFIB [id number] 10/22/2018 11:06:00 23:59:59 CLS Outpatient PADMA IBANEZ MD [facility] IHC CBC; BMP [id number] 10/21/2018 11:54:00 23:59:59 CLS Outpatient PADMA IBANEZ MD [facility] LAB FS AFIB ACUTE ON CHRONIC S YSTOLIC HEART FAILURE [id number] 10/05/2018 14:02:00 019 13:11:00 DIS Inpatient MEENA MAHAJAN, KEON [facility] ICU ACUTE COPD EXACERBATION ; NEW ONSET HEART FAILURE
[2019-11-07] MEDS ORDERED: NS IV 1000 ML 1,000 ML IV SCH (09:15)
[2019-11-07 09:36] LABS: BASOPHILS % (AUTO) 1 % (0-10); EOSINOPHILS % (AUTO) 4 % (0-10); HEMATOCRIT 42 % (40-54); HEMOGLOBIN 13.9 G/DL (13.3-17.7); LYMPHOCYTES % (AUTO) 31 % (12-44); MEAN CORPUSCULAR HEMOGLOBIN 31 PG (25-34); MEAN CORPUSCULAR HGB CONC 33 G/DL (32-36); MEAN CORPUSCULAR VOLUME 93 FL (80-99); MEAN PLATELET VOLUME 10.1 FL (7.4-10.4); MONOCYTES % (AUTO) 13 % (0-12); NEUTROPHILS % (AUTO) 51 % (42-75); PLATELET COUNT 286 10^3/uL (130-400); RED CELL DISTRIBUTION WIDTH 12.9 % (10.0-14.5)
[2019-11-07 09:46] LABS: ATYPICAL LYMPHOCYTES 15 %; BAND NEUTROPHILS 2 %; BASOPHILS % (MANUAL) 0 %; EOSINOPHILS % (MANUAL) 4 %; LYMPHOCYTES % (MANUAL) 20 %; MONOCYTES % (MANUAL) 8 %; NEUTROPHILS % (MANUAL) 51 %
[2019-11-07 09:47] LABS: RBC MORPH NORMAL
[2019-11-07 09:53] LABS: BUN/CREATININE RATIO 19; CARBON DIOXIDE 24 MMOL/L (21-32); CHLORIDE 101 MMOL/L (98-107); CREATININE SERUM 1.12 MG/DL (0.60-1.30); GFR ESTIMATED > 60; GLUCOSE 109 MG/DL (70-105); POTASSIUM 4.7 MMOL/L (3.6-5.0); SODIUM 138 MMOL/L (135-145)
--- NOTE | 2019-11-07 09:59 | Diagnostic Imaging Report ---
PROCEDURE: CT abdomen and pelvis without contrast. TECHNIQUE: Multiple contiguous axial images were obtained through the abdomen and pelvis without the use of intravenous contrast. Auto Exposure Controls were utilized during the CT exam to meet ALARA standards for radiation dose reduction. Indication: Left flank pain, unable to urinate. Comparison: None. Discussion: The lung bases are unremarkable. Normal heart size. No pleural or pericardial fluid. The gallbladder, liver, pancreas, stomach, spleen, and adrenal glands are unremarkable. There are nonobstructing bilateral renal calculi measuring up to 3 mm. No hydronephrosis on the right. There is moderate hydronephrosis on the left with hydroureter also noted. There is no stone identified on the left. There is no stone within the bladder. Findings are nonspecific though could be seen with a recently passed stone. Recommend clinical correlation and direct visualization is indicated. The bladder is distended. The prostate is normal in size. There is a large stone measuring 6.5 mm within the proximal urethra, just after the prostate, which could represent an obstructing urethral stone. Mild constipation. The appendix is normal in caliber though does contain a small appendicolith. No ascites or pathologically enlarged lymph nodes identified. Atherosclerotic plaque is noted throughout the aorta. Borderline ectasia of the abdominal aorta measuring 2.9 x 2.4 cm. 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 Impression: 1. A 6.5 mm stone projected over the base of the urethra concerning for an obstructing stone. Additional nonobstructing bilateral renal calculi are noted. Hydronephrosis is present on the left. 2. Distention of the urinary bladder. 3. Tiny appendicolith. Dictated by: Dictated on workstation # [id number]
[2019-11-07 10:33] VITALS: BP 123/97
[2019-11-07 10:38] LABS: BACTERIA,URINE NEGATIVE /HPF; BILIRUBIN,URINE NEGATIVE (NEGATIVE); CLARITY,URINE SL CLOUDY; COLOR,URINE YELLOW; GLUCOSE, URINE (UA) NEGATIVE (NEGATIVE); KETONES,URINE NEGATIVE (NEGATIVE); LEUKOCYTE ESTERASE ,URINE NEGATIVE (NEGATIVE); NITRITE,URINE NEGATIVE (NEGATIVE); PH,URINE 7.5 (5-9); PROTEIN,URINE NEGATIVE (NEGATIVE); RBC,URINE 50-100 /HPF; SQUAMOUS EPITHELIAL CELL,UR RARE /HPF; WBC,URINE 0-2 /HPF
[2019-11-07 17:08] LABS: WHITE BLOOD COUNT 5.8 10^3/uL (4.3-11.0)
[2019-11-07 17:09] LABS: NEUTROPHILS # (AUTO) 2.9 X 10^3 (1.8-7.8)
[2019-11-07 17:10] LABS: EOSINOPHILS # (AUTO) 0.3 10^3/uL (0.0-0.3); LYMPHOCYTES # (AUTO) 1.9 X 10^3 (1.0-4.0); MONOCYTES # (AUTO) 0.8 X 10^3 (0.0-1.0)
[2019-11-10] MEDS ORDERED: SULF1TAB35 PO (08:01)
[2019-11-10] MEDS ORDERED: PHEN-640 PO (08:01)
== END 2019-11-07 10:31 | disposition home or self-care (01) ==
LOC: EDUNIT# 08:44 → ER FS 08:45
DX: N13.9 Obstructive and reflux uropathy, unspecified (principal); J44.9 Chronic obstructive pulmonary disease, unspecified; Z85.828 Personal history of other malignant neoplasm of skin; Z79.51 Long term (current) use of inhaled steroids; Z87.891 Personal history of nicotine dependence
CPT/HCPCS: 36415; 74176; 80048; 81000; 84484; 85007; 85027; 93005; 96360

== ENCOUNTER → 2019-11-08 | Outpatient (CLI) | payer MEDICARE ==
[~2019-11-08] MED LIST changes: +ATOR40TA70 PO; +FURO20TA4 PO; +LISI2.5T PO; +MTP25TSR PO; +POTA10TA36 PO
--- NOTE | 2019-11-08 12:08 | Diagnostic Imaging Report ---
INDICATION: Bladder calculus. EXAMINATION: KUB at 11:55 AM. FINDINGS: The bowel gas pattern is normal. There is a 3 mm opacity projecting over the inferior pole of the right kidney that could be a calculus. There is a 3 mm opacity projecting over the low mid pelvis that could be a bladder calculus. There are degenerative changes of the lumbar spine. IMPRESSION: Possible right nephrolithiasis and possible bladder/urethral calculus. Dictated by: Dictated on workstation # [id number]
== END ==
LOC: RAD 11:41
PROVIDERS: ATTEND Urology
DX: N21.0 Calculus in bladder (principal)
CPT/HCPCS: 74018

== ENCOUNTER 2019-11-09 10:08 | Outpatient (RCR) | payer MEDICARE ==
[~2019-11-09] VITALS: Ht 182.9 cm; Wt 77.3 kg
[~2019-11-09 10:08] MED LIST changes: -ATOR40TA70 PO; -FURO20TA4 PO; -LISI2.5T PO; -MTP25TSR PO; -POTA10TA36 PO
[2019-11-09] MEDS ORDERED: POTA10TA36 PO (10:22)
[2019-11-09] MEDS ORDERED: FURO20TA4 PO (10:22)
[2019-11-09] MEDS ORDERED: LISI2.5T PO (10:22)
[2019-11-09] MEDS ORDERED: ATOR40TA70 PO (10:22)
[2019-11-09] MEDS ORDERED: MTP25TSR PO (10:22)
[2019-11-10] MEDS ORDERED: SULF1TAB35 PO (08:01)
[2019-11-10] MEDS ORDERED: PHEN-640 PO (08:01)
== END 2019-11-09 10:29 | disposition home or self-care (01) ==
LOC: PREOP 10:08 → EDSTATUS 11:30
PROVIDERS: ATTEND Urology
DX: Z01.812 Encounter for preprocedural laboratory examination (principal); Z11.59 Encounter for screening for other viral diseases; N21.0 Calculus in bladder
CPT/HCPCS: 87635

== ENCOUNTER → 2019-11-10 | Day surgery (SDC) | payer MEDICARE ==
[~2019-11-10] VITALS: Ht 182.9 cm; Wt 77.3 kg
[2019-11-10] VITALS (8 sets, daily range): BP systolic 112–154; BP diastolic 61–94
[~2019-11-10] MED LIST changes: +ATOR40TA70 PO; +CATHETER FLUSH 10 ML SYR IV PRN; +DEXAMETHASONE 10 MG/ML (DECADRON) 1 ML VIAL ONE; +FURO20TA4 PO; +LACTATED RINGERS 1,000 ML IV PRN; +LIDOCAINE PF 2% 5 ML (XYLOCAINE) VIAL ONE; +LISI2.5T PO; +MTP25TSR PO; +ONDANSETRON 4 MG/2 ML (SDV) Z0FRAN ONE; +PHEN-640 PO; +POTA10TA36 PO; +SEVOFLURANE (ULTANE) 15 ML INHAL SOLN ONE; +SULF1TAB35 PO; +WATER (STERILE) FOR INJECTION 10 ML ONE; +cefTRIAXone 1,000 MG IV (ROCEPHIN) VIAL ONE; +cefTRIAXone FOR IV USE 1,000 MG in WATER (STERILE) FOR INJECTION 10 ML IV ONE; +fentaNYL INJECTION 100 MCG/2 ML AMP ONE; +proPOfol 200 MG/20 ML (DIPRIVAN) VIAL IV ONE
--- OUTSIDE RECORDS SUMMARY | 2019-11-10 06:26 | XMS REPORT | Continuity of Care Document ---
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 11/10/2018 PADMA IBANEZ MD Ot I48.91 UNSPECIFIED ATRIAL FIBRILLATION 11/10/2018 PADMA IBANEZ MD Ot I50.23 ACUTE ON CHRONIC SYSTOLIC (CONGESTIVE) H 03/15/2019 PADMA IBANEZ MD Ot I25.10 ATHSCL HEART DISEASE OF [place] CORONARY 03/15/2019 PADMA IBANEZ MD Ot 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 05/11/2019 PADMA IBANEZ MD Ot I48.91 UNSPECIFIED ATRIAL FIBRILLATION 05/11/2019 PADMA IBANEZ MD Ot I50.23 ACUTE ON CHRONIC SYSTOLIC (CONGESTIVE) H 05/11/2019 PADMA IBANEZ MD Ot I25.10 ATHSCL HEART DISEASE OF [place] CORONARY 05/11/2019 PADMA IBANEZ MD Ot 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 06/01/2019 Charlie FRANCO MD Ot I25.10 ATHSCL HEART DISEASE OF [place] CORONARY 06/01/2019 Charlie FRANCO MD Ot I35 .1 NONRHEUMATIC AORTIC (VALVE) INSUFFICIENC 06/01/2019 Charlie FRANCO MD, Ot I48 .0 PAROXYSMAL ATRIAL FIBRILLATION 06/01/2019 Charlie FRANCO MD, Ot 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 06/01/2019 Charlie FRANCO MD, Ot J44 .9 CHRONIC OBSTRUCTIVE PULMONARY DISEASE, U 07/02/2019 Charlie FRANCO MD Ot I25.10 ATHSCL HEART DISEASE OF [place] CORONARY 07/02/2019 Charlie FRANCO MD, Ot I35 .1 NONRHEUMATIC AORTIC (VALVE) INSUFFICIENC 07/02/2019 Charlie FRANCO MD, Ot I48 .0 PAROXYSMAL ATRIAL FIBRILLATION 07/02/2019 Charlie FRANCO MD, Ot 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 07/02/2019 Charlie FRANCO MD, Ot J44 .9 CHRONIC OBSTRUCTIVE PULMONARY DISEASE, U 07/08/2019 Charlie FRANCO MD, Ot I25.10 ATHSCL HEART DISEASE OF [place] CORONARY 07/08/2019 Charlie FRANCO MD, Ot I35 .1 NONRHEUMATIC AORTIC (VALVE) INSUFFICIENC 07/08/2019 Charlie FRANCO MD, Ot I48 .0 PAROXYSMAL ATRIAL FIBRILLATION 07/08/2019 Charlie FRANCO MD Ot 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 07/08/2019 Charlie FRANCO MD, Ot J44 .9 CHRONIC OBSTRUCTIVE PULMONARY DISEASE, U Procedures Code Description Performed By Per formed On [id number] FL UOROSCOPY OF MULT COR ART USING [...] blood basophil count (count/volume) 0.0 10*3/uL 0.0-0.1 Complete blood count (CBC) with automate d white blood cell (WBC) differential - 11/07/19 09:15 Blood leukocytes automated count (number/volume) 5.8 10*3/uL 4.3-11.0 Blood erythrocytes automated count (number/volume) 4.49 10*6/uL 4.35-5.85 Venous blood hemoglobin measurement (mass/volume) 13.9 g/dL 13.3-17.7 Blood hematocrit (volume fraction) 42 % 40-54 Automated erythrocyte mean corpuscular volume 93 [ foz_us] 80-99 Automated erythrocyte mean corpuscular h emoglobin (mass per erythrocyte) 31 pg 25-34 Automated erythrocyte mean corpuscular h emoglobin concentration measurement (mass/volume) 33 g/dL 32-36 Automated erythrocyte distribution width ratio 12. 9 % 10.0- 14.5 Automated blood platelet count (count/volume) 286 10*3/uL 130-400 Automated blood platelet mean volume measurement 10.1 [foz_us] 7.4-10.4 Automated blood neutrophils/100 leukocytes 51 % 42-75 Automated blood lymphocytes/100 leukocytes 31 % 12-44 Blood monocytes/100 leukocytes 13 % 0-12 Automated blood eosinophils/100 leukocytes 4 % 0-10 Automated blood basophils/100 leukocytes 1 % 0-10 Blood neutrophils automated count (number/volume) 2.9 10*3 1.8-7.8 Blood lymphocytes automated count (number/volume) 1.9 10*3 1.0-4.0 Blood monocytes automated count (number/volume) 0. 8 10*3 0.0-1.0 Automated eosinophil count 0.3 10*3/uL 0 .0-0.3 Automated blood basophil count (count/volume) 0.0 10*3/uL 0.0-0.1 Manual absolute plasma cell count - 09/23 09:15 Blood monocytes/100 leukocytes 8 % NRG Manual blood segmented neutrophils/100 leukocytes 51 % NRG Blood band neutrophils/100 leukocytes 2 % NRG Manual blood lymphocytes/100 leukocytes 20 % NRG Manual eosinophils/100 leukocytes in nose 4 % NRG Manual blood basophils/100 leukocytes 0 % NRG Manual blood lymphocytes variant/100 leukocytes 15 % NRG Blood erythrocyte morphology finding identification NORMAL NRG Whole blood basic metabolic panel - 09/23 09:15 Serum or plasma sodium measurement (moles/volume) 138 mmol/L 135-145 Serum or plasma potassium measurement (moles/volume) 4.7 mmol/L 3.6-5.0 Serum or plasma chloride measurement (moles/volume) 101 mmol/L 98-107 Carbon dioxide 24 mmol/L 21-32 Serum or plasma anion gap determination (moles/volume) 13 mmol/L 5-14 Serum or plasma urea nitrogen measurement (mass/volume ) 21 mg/dL 7-18 Serum or plasma creatinine measurement (mass/volume) 1.12 mg/dL 0.60-1.30 Serum or plasma urea nitrogen/creatinine mass ratio 19 NRG Serum or plasma creatinine measurement w ith calculation of estimated glomerular filtration rate > NRG Serum or plasma glucose measurement (mass/volume) 109 mg/dL 70-105 Serum or plasma calcium measurement (mass/volume) 9.0 mg/dL 8.5-10.1 TROPONIN I FS - 05/03/20 09:15 TROPONIN I FS < 0.30 <0.30 Complete urinalysis with reflex to cultu re - 11/07/19 10:30 Urine color determination YELLOW NRG Urine clarity determination SL CLOUDY N RG Urine pH measurement by test strip 7.5 5-9 Specific gravity of urine by test strip 1.015 1.016-1.022 Urine protein assay by test strip, semi-quantitative NEGATIVE NEGATIVE Urine glucose detection by automated test strip NE GATIVE NEGATIVE Erythrocytes detection in urine sediment by light micr oscopy 2+ NEGATIVE Urine ketones detection by automated test strip NE GATIVE NEGATIVE Urine nitrite detection by test strip NEGATIVE NEGATIVE Urine total bilirubin detection by test strip NEGA TIVE NEGATIVE Urine urobilinogen measurement by automated test strip (mass/volume) 0.2 mg/dL < = 1.0 Urine leukocyte esterase detection by dipstick NEG ATIVE NEGATIVE Automated urine sediment erythrocyte cou nt by microscopy (number/high power field) [HPF] NRG Automated urine sediment leukocyte count by microscopy (number/high power field) [HPF] NRG Bacteria detection in urine sediment by light microsco py NEGATIVE NRG Squamous epithelial cells detection in u rine sediment by light microscopy RARE NRG Crystals detection in urine sediment by light microsco py NONE NRG Casts detection in urine sediment by light microscopy PRESENT NRG Mucus detection in urine sediment by light microscopy NEGATIVE NRG Complete urinalysis with reflex to culture NO NRG Hyaline casts detection in urine sediment by light suzette roscopy 2-5 NRG Coronavirus SARS-CoV-2 SO 2018 0 14:00 Coronavirus Ab [Units/volume] in Serum Negative Negative Encounters ACCT No. Visit Date/Time Discharge Status Pt. Type Provider Facility Loc./Unit Complaint [id number] 11/04/2018 12:08:57 9 23:59:59 CLS Preadmit BRIDGETT IIIDAA [facility] ANNETTE CR TAVR [id number] 11/07/2019 08:45:00 020 10:31:00 DIS Emergency ALEJANDRA JACINTO DARNELL [facility] ER FS CANT URINATE; THINKS HE HAS A KIDNEY STONE [id number] 05/12/2019 09:19:00 019 23:59:59 CLS Outpatient Charlie FRANCO MD [facility] CARD PARTOXYSMAL AFIB [id number] 10/22/2018 11:06:00 23:59:59 CLS Outpatient PADMA IBANEZ MD [facility] IHC CBC; BMP [id number] 10/21/2018 11:54:00 23:59:59 CLS Outpatient PADMA IBANEZ MD [facility] LAB FS AFIB ACUTE ON CHRONIC S YSTOLIC HEART FAILURE [id number] 10/05/2018 14:02:00 13:11:00 DIS Inpatient MEENA MAHAJAN, KEON Rascon [facility] ICU ACUTE COPD EXACERBATION ; NEW ONSET HEART FAILURE [id number] 11/10/2019 09:00:00 P EN Preadmit EVARISTO RICHARDSON MD [facility] SDC BLADDER STONE [id number] 11/08/2019 13:41:[address] Outpatient EVARISTO RICHARDSON MD [facility] PREOP BLADDER STONE [id number] 11/08/2019 11:41:[address] Outpatient EVARISTO RICHARDSON MD [facility] RAD BLADDER STONE
--- NOTE | 2019-11-10 07:25 | Progress Note-Pre Operative ---
Pre-Operative Progress Note H&P Reviewed The H&P was reviewed, patient examined and no changes noted. Date Seen by Provider: November 10, 2019 Time Seen by Provider: 07:25 Date H&P Reviewed: November 10, 2019 Time H&P Reviewed: 07:25 Pre-Operative Diagnosis: BLADDER STONE EVARISTO RICHARDSON MD November 10, 2019 07:25
--- NOTE | 2019-11-10 07:27 | Progress Note-Post Operative ---
Post-Operative Progess Note Surgeon (s)/End User Consultant (s) Surgeon EVARISTO RICHARDSON MD End User Consultant: NONE Pre-Operative Diagnosis BLADDER STONE Post-Operative Diagnosis SAME Procedure & Operative Findings Date of Procedure 11/10/19 Procedure Performed/Findings CYSTOLITHOTRIPSY Anesthesia Type GENERAL Estimated Blood Loss Estimated blood loss (mL): NONE Specimens/Packing Specimens Removed STONE FRAGMENTS Packing: NONE EVARISTO RICHARDSON MD November 10, 2019 07:27
--- NOTE | 2019-11-10 07:28 | Discharge Inst-Urology ---
Discharge Inst-Urology Reconcile Patient Problems Problems Reviewed?: Yes Final Diagnosis BLADDER STONE Patient Instructions/Follow Up Plan/Assessment/Instructions Please make appointment to been seen in office in 3 weeks. Tomorrow, if no bleeding, may resume ASA Increase oral fluids for 48 hours and then as needed. Diet and Activity as tolerated. If questions or concerns contact your physician Or seek help at emergency department. EVARISTO RICHARDSON MD November 10, 2019 07:28
--- NOTE | 2019-11-10 10:31 | OPERATIVE REPORT ---
DATE OF SERVICE: 11/10/2019 PREOPERATIVE DIAGNOSIS: Bladder stone. POSTOPERATIVE DIAGNOSIS: Bladder stone. OPERATION PERFORMED: Cystolithotripsy. SURGEON: Edward Richardson MD ANESTHESIA: General. COMPLICATIONS: None. DESCRIPTION OF PROCEDURE: Under satisfactory general anesthesia and the patient in lithotomy position, genitalia were prepped and draped in the usual sterile fashion. A 23-Chinese cystoscope was introduced under vision. The prostate revealed a median bar causing some bladder neck obstruction. The bladder was inspected and was completely normal except for some trabeculation and the stone. I first tried to grab the stone with the grasping forceps and extracted it. However, it could not pass beyond the median lobe of bar, so I went ahead and broke it up completely using the lithoclast. I then irrigated the fragment and two larger relatively fragments were grasped with the grasping forceps and extracted. There were no more fragments in the bladder at all. Ureteric orifices had clear effluxes bilaterally. The bladder was evacuated and the cystoscope was removed. The patient tolerated the procedure and anesthesia well and was sent to recovery room in a stable condition. Job ID: [id number] DocumentID: [id number] Dictated Date: 11/10/2019 08:12:41 Child Psychology Teacher Date: 11/10/2019 10:30:36 Dictated By: EDWARD RICHARDSON MD
--- NOTE | 2019-11-10 12:13 | Anesthesia-General Post-Op ---
General Patient Condition Mental Status/LOC: Same as Preop Cardiovascular: Satisfactory Nausea/Vomiting: Absent Respiratory: Satisfactory Pain: Controlled Complications: Absent Post Op Complications Complications None Follow Up Care/Instructions Patient Instructions None needed. Anesthesia/Patient Condition Patient Condition Patient is doing well, no complaints, stable vital signs, no apparent adverse anesthesia problems. No complications reported per nursing. SALINA GRIFFIN CRNA November 10, 2019 12:13
== END ==
LOC: SDC 06:21
PROVIDERS: ATTEND Urology
DX: N21.0 Calculus in bladder (principal); N32.89 Other specified disorders of bladder; N32.0 Bladder-neck obstruction; N40.0 Benign prostatic hyperplasia without lower urinary tract symptoms; I10 Essential (primary) hypertension; I25.10 Atherosclerotic heart disease of native coronary artery without angina pectoris; J44.9 Chronic obstructive pulmonary disease, unspecified; I48.91 Unspecified atrial fibrillation; Z79.899 Other long term (current) drug therapy; Z87.891 Personal history of nicotine dependence; Z80.1 Family history of malignant neoplasm of trachea, bronchus and lung
CPT/HCPCS: 87081

== ENCOUNTER 2020-04-14 16:44 | Emergency (ER) | payer MEDICARE ==
[~2020-04-14] VITALS: Ht 182.3 cm; Wt 75.7 kg
[~2020-04-14 16:44] MED LIST changes: -CATHETER FLUSH 10 ML SYR IV PRN; -DEXAMETHASONE 10 MG/ML (DECADRON) 1 ML VIAL ONE; -LACTATED RINGERS 1,000 ML IV PRN; -LIDOCAINE PF 2% 5 ML (XYLOCAINE) VIAL ONE; -ONDANSETRON 4 MG/2 ML (SDV) Z0FRAN ONE; -SEVOFLURANE (ULTANE) 15 ML INHAL SOLN ONE; -WATER (STERILE) FOR INJECTION 10 ML ONE; -cefTRIAXone 1,000 MG IV (ROCEPHIN) VIAL ONE; -cefTRIAXone FOR IV USE 1,000 MG in WATER (STERILE) FOR INJECTION 10 ML IV ONE; -fentaNYL INJECTION 100 MCG/2 ML AMP ONE; -proPOfol 200 MG/20 ML (DIPRIVAN) VIAL IV ONE
[2020-04-14 16:49] VITALS: BP 139/71
[2020-04-14] MEDS ORDERED: TETANUS,DIPTH,PERTUSS P/F (BOOSTRIX) 0.5 ML VIAL IM ONE (17:15)
[2020-04-14] MEDS ORDERED: CEPHALEXIN 250 MG (KEFLEX) CAP PO STA (17:25)
[2020-04-14] MEDS ORDERED: CEPH500T PO (17:31)
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
== END 2020-04-14 17:40 | disposition home or self-care (01) ==
LOC: EDUNIT# 16:44 → ER FS 16:46
DX: S51.811A Laceration without foreign body of right forearm, initial encounter (principal); S41.111A Laceration without foreign body of right upper arm, initial encounter; S51.812A Laceration without foreign body of left forearm, initial encounter; J44.9 Chronic obstructive pulmonary disease, unspecified; R40.2410 Glasgow coma scale score 13-15, unspecified time; Z23 Encounter for immunization; Z20.828 Contact with and (suspected) exposure to other viral communicable diseases; Z85.828 Personal history of other malignant neoplasm of skin; Z87.891 Personal history of nicotine dependence; W11.XXXA Fall on and from ladder, initial encounter; Y92.009 Unspecified place in unspecified non-institutional (private) residence as the place of occurrence of the external cause
CPT/HCPCS: 90715; 99284

== ENCOUNTER → 2020-07-28 | Outpatient (CLI) | payer MEDICARE ==
[~2020-07-28] MED LIST changes: +CEPH500T PO
[2020-07-28 09:34] LABS: ALANINE AMINOTRANSFERASE 17 U/L (0-55); ALBUMIN 4.3 GM/DL (3.2-4.5); ALKALINE PHOSPHATASE 107 U/L (40-136); BILIRUBIN,TOTAL 0.6 MG/DL (0.1-1.0); BUN/CREATININE RATIO 19; CALCIUM 9.2 MG/DL (8.5-10.1); CARBON DIOXIDE 27 MMOL/L (21-32); CHLORIDE 104 MMOL/L (98-107); CREATININE SERUM 1.04 MG/DL (0.60-1.30); GFR ESTIMATED > 60; GLUCOSE 104 MG/DL (70-105); POTASSIUM 4.1 MMOL/L (3.6-5.0); SODIUM 140 MMOL/L (135-145); TOTAL PROTEIN 6.9 GM/DL (6.4-8.2)
[2020-07-28 15:12] LABS: CHOLESTEROL 144 MG/DL (< 200); HDL CHOLESTEROL 71 MG/DL (40-60); TRIGLYCERIDES 57 MG/DL (<150); VLDL CHOLESTEROL 11 MG/DL (5-40)
== END ==
LOC: LAB FS 08:20
PROVIDERS: ATTEND Family Medicine
DX: E78.5 Hyperlipidemia, unspecified (principal)
CPT/HCPCS: 36415; 80053; 80061

== ENCOUNTER → 2020-10-24 | Outpatient (CLI) | payer MEDICARE | LOC: CARD 14:33 | PROVIDERS: ATTEND Internal Medicine Cardiovascular Disease | DX: I11.9 Hypertensive heart disease without heart failure (principal); I34.0 Nonrheumatic mitral (valve) insufficiency | CPT/HCPCS: 93306 ==

== ENCOUNTER → 2021-06-11 | Outpatient (CLI) | payer MEDICARE ==
[~2021-06-11] VITALS: Ht 182 cm; Wt 78.0 kg
[~2021-06-11] MED LIST changes: +CATHETER FLUSH 10 ML SYR IV PRN; -LISI2.5T PO; +LISI2.5T13 PO; -POTA10TA36 PO; +POTA10TA37 PO; -SULF1TAB35 PO; +SULF1TAB38 PO
[2021-06-11 09:48] VITALS: BP 164/97
--- NOTE | 2021-06-12 08:00 | Cardiology Stress Test Report ---
Stress Test Report Date of Procedure/Referring: Date of Procedure: Jun 11, 2021 Sarah Raya Admitting Physician Laura Caceres MD Indications: HTN Baseline Heart Rate: 49 Baseline Blood Pressure: Blood Pressure Systolic: 164 Blood Pressure Diastolic: 97 Vital Signs Date Time Temp Pulse Resp B/P (MAP) Pulse Ox O2 Delivery O2 Flow Rate FiO2 06/11/21 09:48 81 16 164/97 (119) 95 Room Air Baseline Vital Signs Vital Signs Date Time Temp Pulse Resp B/P (MAP) Pulse Ox O2 Delivery O2 Flow Rate FiO2 06/11/21 09:48 81 16 164/97 (119) 95 Room Air Baseline EKG: Baseline EKG: NSR Summary: After explaining the procedure and details to the patient, he signed the consent and was brought to the stress nuclear laboratory. Patient exercised on standard Sandip protocol, EKG, heart rate and blood pressure were monitored continuously, resting and stress doses of radio tracer were injected, imaging was acquired and reviewed in the short axis, horizontal long axis and vertical long axis views Patient was able to exercise for a total of 4 minutes on Sandip protocol, METs 5.6 Maximum heart rate 164 Maximum blood pressure 211/105 Stress EKG, Minimal nondiagnostic changes Recovery EKG, Return to baseline TID: 0.91 SSS: 3 SDS: 1 EF: 62 Conclusion: 1. Fair exercise tolerance, total of 4 minutes on standard Sandip protocol achieving over 100% of maximal expected heart rate 2. Nondiagnostic EKG changes with exercise return to baseline during recovery 3. Diaphragmatic attenuation with mild decrease uptake involving the inferoapical segment with subtle reversibility, there is no significant ischemia or infarction on SPECT images 4. Normal left ventricular size, ejection fraction 62% 5. Severe hypertensive response to exercise with peak blood pressure 211/105 return to baseline during recovery ALBA OBRIEN MD Jun 12, 2021 08:00
== END ==
LOC: CARD 07:49
PROVIDERS: ATTEND Physician Assistant
DX: I10 Essential (primary) hypertension (principal)
CPT/HCPCS: 78452; 93017; A9502

== ENCOUNTER 2022-03-21 05:32 | Outpatient (CLI) | payer MEDICARE ==
[~2022-03-21] VITALS: Ht 182.9 cm; Wt 82.1 kg
[~2022-03-21 05:32] MED LIST changes: -CATHETER FLUSH 10 ML SYR IV PRN; +POTA-177 PO; -POTA10TA37 PO
[2022-03-21] MEDS ORDERED: UMEC1BLS IH (17:09)
[2022-03-21] MEDS ORDERED: RIVA20TA PO (17:09)
[2022-03-21] MEDS ORDERED: ALPR0.5T7 PO (17:09)
== END 2022-03-21 15:21 | disposition home or self-care (01) ==
LOC: PREOP 05:32
PROVIDERS: ATTEND Surgery
DX: Z01.818 Encounter for other preprocedural examination (principal)

== ENCOUNTER 2022-03-28 10:36 | Day surgery (SDC) | payer MEDICARE ==
[2022-03-28] VITALS (9 sets, daily range): BP systolic 105–134; BP diastolic 57–76
[~2022-03-28] VITALS: Ht 82.1 cm; Wt 82.1 kg
[~2022-03-28 10:36] MED LIST changes: +ALPR0.5T7 PO; +RIVA20TA PO; +UMEC1BLS IH
[2022-03-28] MEDS ORDERED: ceFAZolin INJECTION 2,000 MG in NS (IVPB) 50 ML IV ONE (11:00)
[2022-03-28] MEDS: LACTATED RINGERS 1,000 ML IV PRN ×2 (11:12→14:28)
[2022-03-28] MEDS ORDERED: LIDOCAINE/EPI 2% 1:200,00 (XYLOCAINE) 20 ML VIAL ONE (12:33)
[2022-03-28] MEDS ORDERED: proPOfol 200 MG/20 ML (DIPRIVAN) VIAL IV ONE (12:33)
[2022-03-28] MEDS ORDERED: LIDOCAINE PF 2% 5 ML (XYLOCAINE) VIAL ONE (12:33)
[2022-03-28] MEDS ORDERED: fentaNYL INJ 100 MCG/2 ML AMP ONE (12:33)
[2022-03-28] MEDS ORDERED: SEVOFLURANE (ULTANE) 15 ML INHAL SOLN ONE (12:33)
[2022-03-28] MEDS ORDERED: MIDAZOLAM 2 MG/2 ML (VERSED) VIAL ONE (12:34)
--- NOTE | 2022-03-28 13:42 | Progress Note-Pre Operative ---
Pre-Operative Progress Note Date of Available H&P: Feb 27, 2022 Date H&P Reviewed: Mar 28, 2022 Time H&P Reviewed: 13:42 History & Physical: H&P Reviewed, Patient Examed, No changes noted Pre-Operative Diagnosis: left upper extremity skin lesion CHASE CHOI DO Mar 28, 2022 13:42
--- NOTE | 2022-03-28 14:44 | Discharge Inst-Simple/Standard ---
Discharge Inst-Standard Patient Instructions/Follow Up Plan of Care/Instructions/FU: 12-14 DAYS JIMBO FOR SUTURE REMOVAL Activity as Tolerated: No Discharge Diet: Regular Diet Other Inst to Patient Follow up Appt: Make appointment for 12-14 DAYS JIMBO FOR SUTURE REMOVAL Instructions: No strenuous activity. May shower in 24 hours, no tub bath or soaking. Use incentive spirometer at home as directed. No Smoking Skin/Wound Care: KEEP AREA CLEAN AND DRY CHANGE DRESSING DAILY. Symptoms to Report: Appetite Changes, Extremity Discoloration, Numbness/Tingling, Swelling Incre ased, Bleeding Excessive, Eyesight Changes, Pain Increased, Urine Color Change, Constipation(Persistent), Fever over 101 degree F, Pain/Pressure in chest, Urinating Difficulty, Cough Up/Vomit Blood, Heart Beat Irreg/Pounding, Pain/Pressure in jaw, Vaginal Bleeding Increase, Cramps in feet or legs, Lightheadedness, Pain/Pressure in shoulder, Diarrhea(Persistent), Memory Changes Suddenly, Questions/Concerns, Weight gain consecutive days, Dizziness/Fainting, Nausea/Vomiting, Shortness of Breath, Weight gain over 2 pounds If questions or concerns contact your physician Or seek help at emergency department. CHASE CHOI DO Mar 28, 2022 14:44
[2022-03-28] MEDS ORDERED: morphine INJ 10 MG/ML 1ML (SYR OR VIAL) IVP ONE (14:45)
[2022-03-28] MEDS ORDERED: ONDANSETRON 4 MG/2 ML (SDV) Z0FRAN IVP PRN (14:45)
[2022-03-28] MEDS ORDERED: MEPERIDINE (DEMEROL) INJ 50 MG/ML IVP ONE (14:45)
--- NOTE | 2022-03-28 14:46 | Anesthesia-General Post-Op ---
General Patient Condition Mental Status/LOC: Same as Preop Cardiovascular: Satisfactory Nausea/Vomiting: Absent Respiratory: Satisfactory Pain: Controlled Complications: Absent Post Op Complications Complications None Follow Up Care/Instructions Patient Instructions None needed. Anesthesia/Patient Condition Patient Condition Patient is doing well, no complaints, stable vital signs, no apparent adverse anesthesia problems. No complications reported per nursing. YASMINE WESLEY CRNA Mar 28, 2022 14:46
--- NOTE | 2022-03-28 20:59 | OPERATIVE REPORT ---
DATE OF SERVICE: 03/28/2022 PREOPERATIVE DIAGNOSIS: Skin lesion, left upper extremity. POSTOPERATIVE DIAGNOSIS: Skin lesion, left upper extremity. PROCEDURE: Excision of left forearm lesion 3.5 x 7.5 cm. SURGEON: Chase Morton DO. ANESTHESIA: Per LIFE TE[employer]ER. ESTIMATED BLOOD LOSS: minimal. COMPLICATIONS: None. INDICATIONS: The patient is a 71-year-old male with a skin lesion, left upper extremity with de sharifa melanocytic changes. He was recommended to have this completely excised. He understands risks and benefits of procedure and wished to proceed. Consent was signed in the chart. DESCRIPTION OF PROCEDURE: The patient was taken to the operating suite, prepped and draped in sterile fashion. Timeout was performed. Local anesthetic was infiltrated around it. 15-blade scalpel was used to make an elliptical skin incision measuring 3.5 x 7.5 cm. Skin and subcutaneous tissue was removed. Specimen was labeled long suture lateral, short suture superior. The skin was then closed using running 3-0 Prolene in a simple running fashion. The area was washed and dried and sterile bandage was applied. The patient tolerated the procedure well without any complications, taken to recovery room in stable condition. Job ID: [id number] DocumentID: [id number] Dictated Date: 03/28/2022 14:41:08 Charge Gang Weigher Date: 03/28/2022 20:58:58 Dictated By: CHASE MORTON DO
== END 2022-03-28 16:05 ==
LOC: SDC 10:36
PROVIDERS: ATTEND Surgery
DX: D22.72 Melanocytic nevi of left lower limb, including hip (principal); Z28.311 Partially vaccinated for COVID-19; J44.9 Chronic obstructive pulmonary disease, unspecified; Z99.81 Dependence on supplemental oxygen; F17.220 Nicotine dependence, chewing tobacco, uncomplicated
CPT/HCPCS: 87081

== ENCOUNTER → 2022-08-29 | Outpatient (CLI) | payer MEDICARE ==
[~2022-08-29] MED LIST changes: +ALBU8.5H6 INH; -RT-ALBUINH INH
== END ==
LOC: CARD 12:00
PROVIDERS: ATTEND Internal Medicine Cardiovascular Disease
DX: I35.8 Other nonrheumatic aortic valve disorders (principal); I10 Essential (primary) hypertension
CPT/HCPCS: 93306

== ENCOUNTER 2023-06-13 11:52 | Emergency (ER) | payer MEDICARE ==
[~2023-06-13] VITALS: Ht 182.9 cm; Wt 77.1 kg
[2023-06-13] MEDS ORDERED: HUMAN PROTHROMBIN COMPLX(PCC) 500 UNIT (KCENTRA) IV STA ×2 (12:07→12:25)
[2023-06-13 12:10] LABS: BASOPHILS % (AUTO) 0 % (0-10); EOSINOPHILS # (AUTO) 0.1 10^3/uL (0.0-0.3); EOSINOPHILS % (AUTO) 1 % (0-10); HEMATOCRIT 45 % (40-54); HEMOGLOBIN 14.9 g/dL (13.3-17.7); LYMPHOCYTES # (AUTO) 1.3 10^3/uL (1.0-4.0); LYMPHOCYTES % (AUTO) 18 % (12-44); MEAN CORPUSCULAR HEMOGLOBIN 31 pg (25-34); MEAN CORPUSCULAR HGB CONC 33 g/dL (32-36); MEAN CORPUSCULAR VOLUME 94 fL (80-99); MEAN PLATELET VOLUME 10.2 fL (9.0-12.2); MONOCYTES # (AUTO) 0.6 10^3/uL (0.0-1.0); MONOCYTES % (AUTO) 8 % (0-12); NEUTROPHILS # (AUTO) 5.3 10^3/uL (1.8-7.8); NEUTROPHILS % (AUTO) 72 % (42-75); PLATELET COUNT 239 10^3/uL (130-400); WHITE BLOOD COUNT 7.4 10^3/uL (4.3-11.0)
[2023-06-13 12:19] LABS: INR 1.3 (0.8-1.4); PROTHROMBIN TIME PATIENT 16.1 SEC (12.2-14.7)
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
[2023-06-13 12:32] LABS: BUN/CREATININE RATIO 28; CARBON DIOXIDE 26 MMOL/L (21-32); CHLORIDE 102 MMOL/L (98-107); CREATININE SERUM 0.97 MG/DL (0.60-1.30); GFR ESTIMATED 82; GLUCOSE 111 MG/DL (70-105); POTASSIUM 4.2 MMOL/L (3.6-5.0); SODIUM 137 MMOL/L (135-145)
--- NOTE | 2023-06-13 12:32 | Diagnostic Imaging Report ---
INDICATION: Vertigo with intracranial hemorrhage. COMPARISON: 10/05/2018. FINDINGS: The lungs are clear. Air trapping and COPD, chronic. No suspicious mass. Hilar and mediastinal contours unremarkable. IMPRESSION: Emphysematous hyperexpanded lungs. No pleural fluid, infiltrate or visible mass. Dictated by: Dictated on workstation # [id number]
[2023-06-13 12:33] LABS: ALANINE AMINOTRANSFERASE 17 U/L (0-55); ALBUMIN 4.4 GM/DL (3.2-4.5); ALKALINE PHOSPHATASE 113 U/L (40-136); BILIRUBIN,TOTAL 0.6 MG/DL (0.1-1.0); CALCIUM 9.2 MG/DL (8.5-10.1); TOTAL PROTEIN 7.6 GM/DL (6.4-8.2)
[2023-06-13] MEDS ORDERED: IOHEXOL 350 MG/ML 100 ML (OMNIPAQUE 350) VIAL IV ONE (13:45)
[2023-06-13] MEDS ORDERED: HOLD METFORMIN - RECEIVED CONTRAST 20 ML VIAL IV SCH (13:45)
[2023-06-13] MEDS ORDERED: NS 100 ML (IVPB) BAG IV ONE (13:45)
--- NOTE | 2023-06-13 14:03 | Diagnostic Imaging Report ---
CLINICAL INDICATION: Patient with vertigo and signs of ischemic stroke and hemorrhage on CT. EXAMS: 1: Head CT with and without IV contrast. Auto Exposure Controls were utilized during the CT exam to meet ALARA standards for radiation dose reduction. 2: CT angiogram of the head and neck performed with 75 cc of Omnipaque 350 IV contrast. Sagittal and coronal MIP reformations were created for better visualization of vascular anatomy. CT angiogram was post-processed using RAPID LVO detection to include quantitative measurements of cerebral blood flow and automated results notification to the stroke and/or neurointerventional team. COMPARISON: CT without contrast dated 06/13/2023. FINDINGS: HEAD CT: Stable area of hemorrhagic infarct versus hemorrhagic mass involving the inferior right cerebellar hemisphere. This area was previously measured at 4.6 cm x 4.7 cm in greatest axial dimensions. There is localized mass effect upon the fourth ventricle and effacement of the fourth ventricle. There is no hydrocephalus. There are no areas of abnormal IV contrast enhancement. There is no brain herniation or midline shift. The remainder of this exam shows no significant interval change compared to the prior study of comparison. CT ANGIOGRAM: There is dense contrast bolus seen within the left subclavian vein, innominate vein, and superior vena cava, which causes streak artifact obscuring portions of the aortic arch and proximal great vessels. The brachiocephalic artery and bilateral subclavian artery are patent. The bilateral common carotid arteries, bilateral ECA, and bilateral cervical ICA are patent. The petrous, cavernous, and supraclinoid ICA are patent. The bilateral ACAs and distal branches are patent. The bilateral MCAs and distal branches are patent. The bilateral cervical vertebral arteries are patent without significant stenosis. Codominant bilateral vertebral arteries are seen. The bilateral PICA are patent. The bilateral intradural vertebral arteries, basilar artery, bilateral superior cerebellar arteries, and bilateral reinsurance clerk and distal branches are patent. The dural venous sinuses are patent. The neck soft tissue structures show no significant abnormality. Centrilobular emphysema is seen. There is a lobulated area of consolidation involving the periphery of the upper thoracic tracheal region. There appears to be a small area of air within it. This may represent secretions. This area measures 1.2 cm x 0.4 cm in AP x transverse dimensions. The neck soft tissue structures show no significant abnormality. The cervical spine shows no significant abnormality. IMPRESSION: 1: Stable hemorrhagic mass versus hemorrhagic infarct involving the right cerebellar hemisphere. There is stable localized mass effect upon the fourth ventricle, but no hydrocephalus. MRI of the brain with and without contrast would better evaluate. 2: CT angiogram of the [place] and neck shows no large vessel occlusion or intravascular thrombus. There is no significant stenosis, vascular malformation, or aneurysm. 3: There is a small area of consolidation in the periphery of the upper thoracic tracheal region, which may represent secretions. Results of this report were discussed with Dr. Misael Diaz via the telephone on 06/13/2023 at 1355 hours. Dictated by: Dictated on workstation # [id number]
[2023-06-13 14:18] VITALS: BP 151/84
== END 2023-06-13 14:18 | disposition short-term general hospital (02) ==
LOC: EDUNIT# 11:52 → ER FS 11:53
DX: I62.9 Nontraumatic intracranial hemorrhage, unspecified (principal); I63.541 Cerebral infarction due to unspecified occlusion or stenosis of right cerebellar artery
CPT/HCPCS: 36415; 70496; 70498; 71045; 80053; 84484; 85025; 85610; 85730; 93005; 93041; Q9967

== ENCOUNTER → 2023-06-13 | Outpatient (CLI) | payer MEDICARE ==
--- NOTE | 2023-06-13 11:47 | Diagnostic Imaging Report ---
PROCEDURE: CT head without contrast. TECHNIQUE: Multiple contiguous axial images were obtained through the brain without the use of intravenous contrast. Auto Exposure Controls were utilized during the CT exam to meet ALARA standards for radiation dose reduction. INDICATION: Slurred speech and vertigo. COMPARISON: No prior studies are available for comparison. FINDINGS: There is a large area of low attenuation in the right cerebellar hemisphere measuring approximately 4.6 cm AP x 3.7 cm cephalocaudal x 4.6 cm transverse. There is some high density along the inferior margin of this area, consistent with acute blood. This does exert some mass effect on the fourth ventricle as well as the quadrigeminal plate cistern. Bilateral cerebral hemispheres are unremarkable without evidence of sulcal effacement or midline shift. Ventricles are within normal size and shape. There is no hydrocephalus. There is no midline shift. Visualized paranasal sinuses are clear. IMPRESSION: There is a large area of low attenuation in the right cerebellar hemisphere with some associated acute hemorrhage along the inferior margin. Findings are concerning for right cerebellar mass versus infarct. This does exert some mass effect on the fourth ventricle. Further evaluation with MRI of the brain would be recommended. Results were discussed with Dr. Laura Caceres prior to this dictation. Dictated by: Dictated on workstation # [id number]
== END ==
LOC: RAD FS 11:03
PROVIDERS: ATTEND Family Medicine
DX: H81.399 Other peripheral vertigo, unspecified ear (principal); R47.81 Slurred speech; R94.02 Abnormal brain scan
CPT/HCPCS: 70450